=== PATIENT | male | born 1995 | race Caucasian/White ===

== ENCOUNTER 2024-11-17 10:10 | Emergency (ER) | payer OTHER, SELFPAY ==
[2024-11-17 10:22] VITALS: BP 138/90; PULSE 72; RESP 18; TEMP 36.8; O2SAT 100
--- NOTE | 2024-11-17 10:25 | ED.NECK ---
HPI - Neck Pain/Injury General Chief Complaint: Neck Pain/Injury Stated Complaint: Lump in Throat Related Data Allergies Allergy/AdvReac Type Severity Reaction Status Date / Time No Known Allergies Allergy Verified 11/17/24 10:22 Discharge Plan Discharge Patient Language: Portuguese Follow-up/Referrals: Odalys Bauer, LIQUOR GALLERY OPERATOR-C [Primary Care Provider] -
--- NOTE | 2024-11-17 10:26 | ED_ITS ---
HPI - General Adult General Chief complaint: Neck Pain/Injury Stated complaint: Lump in Throat Time Seen by Provider: 11/17/24 10:32 Source: patient Mode of arrival: ambulatory Limitations: no limitations History of Present Illness HPI narrative: 29 year old male presents with concern for lump on his neck. 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 Reports it has been there since then, and has gotten larger. Reports he had a period where he was ill with a fever and the lump got a little bit larger, then went back down to its current size when he was feeling better. He denies tenderness. He reports he typically does not have trouble swallowing, when he was a little larger when he was sick he did have trouble swallowing. He denies redness, warmth. He denies any history of thyroid problems. Denies upper respiratory infection symptoms. MD complaint: neck mass Related Data Allergies Allergy/AdvReac Type Severity Reaction Status Date / Time No Known Allergies Allergy Verified 11/17/24 10:22 Review of Systems Review of Systems: CONSTITUTIONAL: Denies malaise, chills, sweats, or fever. ENT: Denies rhinorrhea, congestion, sinus pain, otalgia or sore throat. CARDIOVASCULAR: Denies chest pain, palpitations, or edema. RESPIRATORY: Denies cough or dyspnea. GASTROINTESTINAL: Reports a hit trouble swallowing at 1 point when the mass was larger SKIN: Denies rash or itching. Reports a mass on his neck, Denies redness, warmth, tenderness All systems reviewed & are unremarkable except as noted in HPI and below PMFSH Comments At time of signature, agree with nursing past medical, surgical, social and family history. There is no relevant family history pertinent to the presenting complaint Exam Narrative: GENERAL: Well-appearing, well-nourished, and in no acute distress. HEAD: Normocephalic, atraumatic. EYES: PERRLA, sclera clear, and EOMI. ENT: Nares clear. Mucous membranes moist. NECK: Supple. Approximately to 0.5 cm palpable nonfluctuant mass noted to the n erin, just left of midline slightly above the thyroid without erythema, induration, tenderness. No lymphadenopathy. No jugular venous distension, or carotid bruits. Carotids were easily palpable bilaterally. CHEST: No respiratory distress. Speaks in full sentences. HEART: Regular rate and rhythm. SKIN: Warm, dry, no visible rash. NEURO: Alert and oriented x3. PSYCH: Normal mood and affect Course Course Emergency Course: Patient referred to Medicine doctor on-call, he is going to call his primary to see if he can get in sooner than December. Patient is aware of diagnosis, understands and agrees to treatment plan. Anticipatory guidance given. Patient agrees to follow-up as directed and is aware of reasons to seek care at the emergency department. Portions of this record may have been created with voice recognition software Level of Care: Express Care Visit Vital Signs Vital signs: Vital Signs Temperature 98.3 F 11/17/24 10:22 Pulse Rate 72 11/17/24 10:22 Respiratory Rate 18 11/17/24 10:22 Blood Pressure 138/90 11/17/24 10:22 Pulse Oximetry 100 11/17/24 10:22 Oxygen Delivery Room Air 11/17/24 10:22 Temperature 98.3 F 11/17/24 10:22 Pulse Rate 72 11/17/24 10:22 Respiratory Rate 18 11/17/24 10:22 Blood Pressure 138/90 11/17/24 10:22 Pulse Oximetry 100 11/17/24 10:22 Oxygen Delivery Room Air 11/17/24 10:22 Reviewed. Medical Decision Making MDM Narrative Medical decision making narrative: The patient was evaluated by myself in the [facility]. History is obtained from patient who is an independent historian and physical exam was performed.? Available medical records were reviewed at this time. ? Exam findings show no acute concerns or changes; patient is non-toxic appearing and is in no distress. Patient is appropriate for outpatient treatment and follow-up. ? I have evaluated and discussed social determinants of health with the patient that could potentially impact subsequent diagnosis and treatment plans. ? Differential diagnosis and treatment plan were discussed with the patient. Patient agrees with discussion and after shared medical decision making agrees with plan of care. All questions were answered to the patient's satisfaction. Vital Signs Vital Signs: Vital Signs Temperature 98.3 F 11/17/24 10:22 Pulse Rate 72 11/17/24 10:22 Respiratory Rate 18 11/17/24 10:22 Blood Pressure 138/90 11/17/24 10:22 Pulse Oximetry 100 11/17/24 10:22 Oxygen Delivery Room Air 11/17/24 10:22 Temperature 98.3 F 11/17/24 10:22 Pulse Rate 72 11/17/24 10:22 Respiratory Rate 18 11/17/24 10:22 Blood Pressure 138/90 11/17/24 10:22 Pulse Oximetry 100 11/17/24 10:22 Oxygen Delivery Room Air 11/17/24 10:22 Critical Care Time Critical Care Time Critical Care Time: No Discharge Plan Discharge Clinical Impression: Mass in neck Patient Disposition: Home Condition: Stable Instructions: General Patient Instructions Additional Instructions: 1) Please follow-up with your primary care doctor for further evaluation. 2) If you have any worsening of symptoms or any other urgent concerns please go to the ER. 3) Please continue taking your home medications as usual. 4) Please read and follow information included in discharge instructions. Patient Language: Maori Follow-up/Referrals: Odalys Bauer, PRODUCT DEVELOPMENT CHEMIST-C [Primary Care Provider] - Levar Palmer DO [Physician] - 2 Days (Mass in neck) Time of Disposition: 10:47
== END 2024-11-17 10:58 | disposition home or self-care (01) ==
PROVIDERS: Emergency Provider Nurse Practitioner; PCP Nurse Practitioner Family
DX: R22.1 Localized swelling, mass and lump, neck (principal)
CPT/HCPCS: 99211; G0463

== ENCOUNTER 2024-12-28 10:22 | Outpatient (CLI) | payer OTHER, SELFPAY ==
--- NOTE | ~2024-12-28 | US_ITS ---
US soft tissue head and neck 12/28/2024 10:36 Indication: Localized swelling. Mass. Procedure: Neck ultrasound Comparison: No prior studies for comparison. Findings: An left paramedian anterior neck adjacent to the thyroid cartilage there is heterogeneous hypoechoic solid mass measuring 3 x 2.7 x 1.4 cm. The lesion demonstrates internal vascularity. Margins are relatively well defined but not encapsulated. No calcification or cystic degeneration. Surrounding soft tissues are unremarkable. No cervical lymphadenopathy is noted in the image field. Impression: 1: Hypoechoic heterogeneous vascularized mass in the anterior left paramedian neck. Differential diagnosis includes thyroid mass, ectopic thyroid tissue, parathyroid adenoma, reactive or atypical lymph node, lymphoma, soft tissue tumor (desmoid, fibromatosis, sarcoma), neurogenic tumor. Recommend correlation with thyroid ultrasound to confirm/exclude thyroid origin. Consider contrast- enhanced CT neck for better delineation of extent in relation to the thyroid gland, cartilage and adjacent soft tissue. Consider fine-needle aspiration biopsy. Reviewed, dictated and finalized at location O. Impression: 1: Hypoechoic heterogeneous vascularized mass in the anterior left paramedian n erin. Differential diagnosis includes thyroid mass, ectopic thyroid tissue, para thyroid adenoma, reactive or atypical lymph node, lymphoma, soft tissue tumor ( desmoid, fibromatosis, sarcoma), neurogenic tumor. Recommend correlation with t hyroid ultrasound to confirm/exclude thyroid origin. Consider contrast-enhanced CT neck for better delineation of extent in relation to the thyroid gland, car tilage and adjacent soft tissue. Consider fine-needle aspiration biopsy.
== END 2024-12-28 10:23 | disposition home or self-care (01) ==
PROVIDERS: PCP Nurse Practitioner Family; Visit Provider Nurse Practitioner Family
DX: R22.1 Localized swelling, mass and lump, neck (principal)
CPT/HCPCS: 76536

== ENCOUNTER 2024-12-28 10:36 | Outpatient (CLI) | payer OTHER, SELFPAY ==
[2024-12-28 14:37] LABS: Hematocrit 43.7 % (42.0-52.0); Hemoglobin 14.3 g/dL (14.0-18.0); Immature Granulocyte Percent A 0.2 % (0-0.5); Lymphocytes Absolute Auto 2.30 K/mm3 (0.9-3.2); Mean Corpuscular HGB Conc 32.7 g/dl (32-36); Mean Corpuscular Hemoglobin 29.4 pg (26-34); Mean Corpuscular Volume 89.9 fl (80-100); Nucleated Red Blood Cells Absolute Auto 0.000 K/mm3 (0.0-0.012); Nucleated Red Blood Cells Perc 0.0 % (0.0-0.2); Platelet Count Result 244 k/mm3 (150-375); Red Blood Count 4.86 M/mm3 (4.6-6.20); White Blood Count 6.5 K/mm3 (4.5-10.0)
[2024-12-28 15:44] LABS: Alanine Aminotransferase 97 U/L (6-50); Albumin Level 4.5 g/dL (3.5-5.1); Alkaline Phosphatase 53 U/L (38-126); Anion Gap 6 mmol/L (4-12); Aspartate Amino Transferase 228 U/L (17-59); Bilirubin,Total 1.0 mg/dL (0.2-1.3); Blood Urea Nitrogen 13 mg/dL (9-20); Calcium 9.3 mg/dL (8.4-10.2); Carbon Dioxide 27 mmol/L (22-30); Chloride 105 mmol/L (98-107); Cholesterol 141 mg/dL (0-200); Estimated Glomerular Filt Rate > 60; Glucose 88 mg/dL (65-110); HDL Direct 48 mg/dL; Potassium 4.8 mmol/L (3.4-5.0); Sodium 138 mmol/L (137-145); Total Protein 7.9 g/dL (6.3-8.2); Triglycerides 51 mg/dL (<150)
[2024-12-28 16:16] LABS: Thyroid Stimulating Hormone 1.070 uIU/mL (0.465-4.680)
== END 2024-12-28 10:37 | disposition home or self-care (01) ==
LOC: ANHGOSHLAB 10:37
PROVIDERS: PCP Nurse Practitioner Family; Visit Provider Nurse Practitioner Family
DX: Z00.00 Encounter for general adult medical examination without abnormal findings (principal); Z13.220 Encounter for screening for lipoid disorders; R22.1 Localized swelling, mass and lump, neck
CPT/HCPCS: 36415; 80053; 80061; 84443; 85025

== ENCOUNTER 2025-01-05 10:25 | Outpatient (CLI) | payer OTHER, SELFPAY ==
--- NOTE | ~2025-01-05 | US_ITS ---
US thyroid INDICATION: Previous mass identified in the left anterior neck. Evaluate whether this is associated with the thyroid gland. TECHNIQUE: Real-time sonographic images of the thyroid gland were obtained. COMPARISON: Ultrasound dated 12/28/2024 FINDINGS: The right thyroid lobe measures 5.2 x 1.5 x 1.3 cm. The left thyroid lobe measures 5.4 x 1.5 x 1.7 cm. There is normal echotexture and echogenicity throughout the thyroid gland. No discrete nodules identified. Normal vascular flow is present. The mass seen on prior ultrasound is not associated are contiguous with the thyroid gland. IMPRESSION: 1. Normal thyroid without discrete nodule or abnormal vascularity. Reviewed, dictated and finalized at location O.
== END 2025-01-05 10:26 | disposition home or self-care (01) ==
PROVIDERS: PCP Otolaryngology; Visit Provider Otolaryngology
DX: R22.1 Localized swelling, mass and lump, neck (principal); Q89.2 Congenital malformations of other endocrine glands
CPT/HCPCS: 76536

== ENCOUNTER 2025-04-20 14:33 | Emergency (ER) | payer OTHER, SELFPAY ==
[2025-04-20 14:49] VITALS: BP 119/73; PULSE 111; RESP 16; TEMP 37.3; O2SAT 98
[2025-04-20 15:01] LABS: EDCOVIDSCREEN Negative (Negative); EDINFLUASCREEN Positive (Negative); EDINFLUBSCREEN Negative (Negative); EDSTREPNEGPOS1 Negative (Negative)
--- NOTE | 2025-04-20 15:02 | ED_ITS ---
HPI - URI/Sore Throat General Chief Complaint: Upper Respiratory Infection Stated Complaint: Cold Symptoms Time Seen by Provider: 04/20/25 14:50 Source: patient and RN notes reviewed Mode of arrival: ambulatory Limitations: no limitations History of Present Illness HPI Narrative: 29-year-old male patient presents Express Care complaining of upper respiratory symptoms started yesterday. Patient reports feeling body aches, chills, tactile fevers, cough, congestion since last night. Patient denies any other upper respiratory symptoms, nausea vomiting, diarrhea, chest pain, difficulty breathing every other symptoms. Patient has not taken anything [id number] help with symptoms. Patient said he was vaccinated this year for the flu. Patient denies any significant past medical history. Related Data Home Medications ?Medication ?Instructions ?Recorded ?Confirmed ?Last Taken ?Type No Home Medications 12/21/24 12/31/24 U nknown History Allergies Allergy/AdvReac Type Severity Reaction Status Date / Time No Known Allergies Allergy Verified 12/31/24 07:55 Review of Systems Review of Systems: CONSTITUTIONAL: Positive for tactile fever, body aches, chills. Negative for sweats. EYES: Denies visual changes, redness, or discharge. ENT: Denies rhinorrhea, congestion, sore throat, or otalgia. Positive for congestion CARDIOVASCULAR: Denies chest pain, palpitations, or edema. RESPIRATORY: Positive cough. Negative for wheezing or Dyspnea. GASTROINTESTINAL: Denies abdominal pain, nausea, vomiting, or diarrhea. GENITOURINARY: Denies dysuria or hematuria. SKIN: Denies rash or itching. MUSCULOSKELETAL: Denies back pain, joint pain, or myalgia. NEUROLOGIC: Denies headache, numbness, or weakness. PSYCHIATRIC: Denies anxiety or depression. All other systems reviewed are negative, except as documented in HPI. FORMERLY [facility], [facility]1983 Surgical History Surgical History History of hydrocelectomy History of tonsillectomy Social History Social History Smoking status: Never smoker Alcohol intake: current Drinks per week: 4 Substance use: never Comments At the time of my signature, I reviewed and agree with the nursing past medical, surgical, social, and family history. There is no relevant family history pertinent to the patient complaint. Exam Narrative: GENERAL: This is a well-nourished, well-developed adult, in no apparent distress. They are non ill-appearing, nontoxic appearing. HEAD: normocephalic, atraumatic. EYES: Sclera clear/white. Conjunctiva normal. Vision is grossly intact. Extraocular movements intact EARS: External ears normal, auditory canals clear and without drainage, TMs normal without perforation. Hearing grossly intact. NOSE: External nose normal with no obvious nasal discharge, nasal turbinates erythematous, no rhinorrhea. THROAT: Mucous membranes moist, posterior pharynx erythematous. Uvula midline. PND present. NECK: Neck supple, non-tender without lymphadenopathy, or thyromegaly. Neck mass present to the left lower neck. CARDIOVASCULAR: Tachycardic rate and rhythm without murmurs, gallops, or rubs. RESPIRATORY: Clear to auscultation. Breath sounds equal bilaterally. No wheezes, rales, or rhonchi. SKIN: warm, Dry, intact with no suspicious lesions or rash, good texture and turgor. NEURO: awake, alert, and oriented to person, place and time. There were no obvious focal neurologic abnormalities. EXTREMITIES: No joint tenderness, effusion, or edema noted. BACK: Nontender without deformity. Course Course Level of Care: Express Care Visit Vital Signs Vital signs: Vital Signs Temperature 99.2 F 04/20/25 14:49 Pulse Rate 111 H 04/20/25 14:49 Respiratory Rate 16 04/20/25 14:49 Blood Pressure 119/73 04/20/25 14:49 Pulse Oximetry 98 04/20/25 14:49 Temperature 99.2 F 04/20/25 14:49 Pulse Rate 111 H 04/20/25 14:49 Respiratory Rate 16 04/20/25 14:49 Blood Pressure 119/73 04/20/25 14:49 Pulse Oximetry 98 04/20/25 14:49 [facility] MDM Narrative Medical decision making narrative: Patient has neck mass, is currently being managed by ENT. Rapid flu a is positive. Negative flu B, COVID, strep. A throat culture is pending. Offered Tamiflu and patient declined. Discussed supportive care. Discussed physical exam findings. Advised supportive measures and signs/symptoms to go to the ER. Pt is appropriate for outpt treatment and f/u. Differential Diagnosis Differential Diagnosis: Differential diagnostic considerations for upper respiratory infection include upper respiratory infection, croup, otitis media, sinusitis, viral infection, bronchitis, influenza, pharyngitis, strep, uvulitis. Lab Data MDM Lab Attestation statement: I personally reviewed the patient's lab results. Labs: Lab Results 04/20/25 Range/Units 14:51 POC Influenza A Ag Positive (Negative) POC Influenza B Ag Negative (Negative) POC SARS CoV-2 Ag Negative (Negative) POC Grp A Strep Screen Negative (Negative) Critical Care Time Critical Care Time Critical Care Time: No Discharge Plan Discharge Clinical Impression: Influenza A Patient Disposition: Home Condition: Stable Instructions: Antibiotic Form, Influenza (ED) Additional Instructions: You should avoid crowds until you are fever free for 24 hours without the use of fever reducing medications, or the symptoms are improved Rest. Drink plenty of fluids. You may take ibuprofen 600 mg to 800 mg every 6-8 hours. Do not exceed more than 800 mg of ibuprofen per dose. Do not exceed more than 3200 mg ibuprofen in a day. You may take up to 1000 mg Tylenol every 6-8 hours. Do not exceed 1000 mg per dose, do exceed more than 4000 mg of Tylenol in a day. Recommend Flonase spray and Zyrtec (or Claritin/Kasia) for sinus pressure/congestion over the counter Cough syrup may cause drowsiness; avoid driving or take it at night time. Follow up with your primary care provider 3-5 days. Go to the ER for worsening symptoms, chest pain, vomiting, difficulty breathing, rapid heart rate, or serious concerns Patient Language: Lithuanian Prescriptions: No Action No Home Medications Follow-up/Referrals: Odalys Bauer, COMMERCIAL BAKER HELPER, AEROSPACE PRODUCTS SALES ENGINEER-C [Primary Care Provider, Family Practice] Stand Alone Forms: Work/School Release IP Time of Disposition: 15:01
== END 2025-04-20 15:07 | disposition home or self-care (01) ==
PROVIDERS: PCP Nurse Practitioner Family
DX: J10.1 Influenza due to other identified influenza virus with other respiratory manifestations (principal); Z20.822 Contact with and (suspected) exposure to COVID-19
CPT/HCPCS: 87081; 87426; 87804; 87880; 99213; G0463